=== PATIENT | male | born 1985 | race Caucasian/White ===

== ENCOUNTER 2022-10-21 10:52 | Emergency (ER) | payer OTHER ==
[2022-10-21] MEDS ORDERED: KETOROLAC TROMETHAMINE 30 MG/1 ML VIAL IVPUSH ONE ×2 (11:00→12:41)
[2022-10-21] MEDS ORDERED: KETOROLAC TROMETHAMINE 30 MG/1 ML VIAL ONE (11:04)
[2022-10-21 11:21] VITALS: BP 152/99; PULSE 95; RESP 18; TEMP 98.9; BMI 31.1
[2022-10-21 11:35] LABS: HEMATOCRIT 48.9 % (35.4-49); HEMOGLOBIN 16.8 G/dL (11.7-16.9); MCH 28.3 pg (25.7-33.7); MCHC 34.4 g/dl (32.0-35.9); MEAN CELL VOLUME 82.5 fl (80-96); MEAN PLT VOLUME 9.1 fl (7.5-11.1); PLATELET COUNT 172.6 10^3/uL (134-434); RBC 5.93 10^6/uL (4.00-5.60); RDW 14.6 % (11.9-15.9); WHITE BLOOD COUNT 6.1 10^3/uL (4.0-10.8)
[2022-10-21 11:48] LABS: ALBUMIN 4.5 g/dl (3.4-5.0); BLOOD UREA NITROGEN 14.9 mg/dl (7-18); CALCIUM 9.5 mg/dl (8.5-10.1); POTASSIUM 4.2 mmol/L (3.5-5.1); SGOT/AST 24.2 U/L (15-37); SGPT/ALT 57.6 U/L (7-52); TOT PROT 6.9 g/dl (6.4-8.2)
[2022-10-21 13:00] LABS: BILIRUBIN,TOTAL 0.7 mg/dL (0.2-1)
== END 2022-10-21 12:48 | disposition home or self-care (01) ==
LOC: FER 10:52
PROC: 3E0333Z Introduction of Anti-inflammatory into Peripheral Vein, Percutaneous Approach (ICD-10-PCS; principal; 2022-10-21)
DX: R10.32 Left lower quadrant pain (principal); K65.9 Peritonitis, unspecified
CPT/HCPCS: 36415; 74177-TC; 80053; 81003; 83690; 85027; 99285-25; Q9967